=== PATIENT | male | born 1990 | race Caucasian/White ===

== ENCOUNTER → 2022-07-12 | Outpatient (CLI) | payer BC ==
[~2022-07-12] MED LIST: HYDROCODONE BIT1 T11 PO; OMNICEF300 MG PO; PREDNICOT20 MG PO
[2022-07-12 08:32] LABS: ALKALINE PHOSPHATASE 71 U/L (46-116); BUN 17 mg/dl (9-23); CHLORIDE 106 mmol/L (98-107); CHOLESTEROL 132 mg/dL (<200); CREATININE 1.08 mg/dL (0.70-1.30); LDL CHOLESTEROL 90 mg/dL (9-159); POTASSIUM 4.4 mmol/L (3.4-5.1); SGPT/ALT 31 U/L (10-49); SODIUM 141 mmol/L (136-145); TOTAL PROTEIN 7.1 gm/dL (6.0-8.0); TRIGLYCERIDES 46 mg/dl (<150)
== END | disposition home or self-care (01) ==
LOC: LAB 07:19
DX: Z00.00 Encounter for general adult medical examination without abnormal findings (principal); K76.0 Fatty (change of) liver, not elsewhere classified; Z80.8 Family history of malignant neoplasm of other organs or systems

== ENCOUNTER 2023-08-08 16:37 | Emergency (ER) | payer BC ==
[~2023-08-08] VITALS: Ht 182.8 cm; Wt 113.4 kg
== END 2023-08-08 19:13 | disposition home or self-care (01) ==
LOC: ED 16:37
DX: S83.92XA Sprain of unspecified site of left knee, initial encounter (principal); W17.89XA Other fall from one level to another, initial encounter; Y93.23 Activity, snow (alpine) (downhill) skiing, snowboarding, sledding, tobogganing and snow tubing; Y92.89 Other specified places as the place of occurrence of the external cause; Y99.8 Other external cause status